=== PATIENT | female | born 1935 | race Caucasian/White ===

== ENCOUNTER 2017-01-27 10:26 | Inpatient (IN) | payer MEDICARE ==
[2017-01-27] VITALS (9 sets, daily range): BP systolic 153–186; BP diastolic 63–92; PULSE 64–75; RESP 14–18; TEMP 98.3; O2SAT 95–97
[~2017-01-27] VITALS: Ht 160 cm; Wt 61.3 kg
[~2017-01-27 10:26] MED LIST: AMLO5TAB96 PO; ASPI81 PO; LEVO.1 PO; LIPI40TA PO; MAXZ PO; TOPR100T15 PO
[2017-01-27] MEDS ORDERED: FURO1TAB62 PO (10:44)
[2017-01-27] MEDS ORDERED: ASPI81CH CHEW (10:44)
[2017-01-27] MEDS ORDERED: TRIA37.5 PO (10:44)
[2017-01-27] MEDS ORDERED: SYNT112T PO (10:44)
[2017-01-27] MEDS ORDERED: METO100T9 PO (10:44)
[2017-01-27] MEDS ORDERED: ATOR40TA16 PO (10:44)
[2017-01-27] MEDS ORDERED: AMLO5CAP3 PO (10:44)
--- NOTE | 2017-01-27 10:54 | PD ---
HPI Chief Complaint: GI Complaint Time Seen by Provider: 10:41 Travel History International Travel<30 days: No Contact w/Intl Traveler<30days: No Traveled to known affect area: No History of Present Illness HPI 81-year-old female here for evaluation of abdominal pain, nausea, possible bowel extraction. The patient reports having similar symptoms about 3 years ago when she was diagnosed with a bowel obstruction. At that time she was also diagnosed with renal cancer and had partial right nephrectomy. She has also had a history of hysterectomy. She feels very nauseous but has not vomited. Yesterday evening she was having intense diffuse abdominal pain. Currently her abdominal pain is mild. She has not had a bowel movement in several days. No fevers. No chest pain. PFSH Past Medical History Autoimmune Disease: No Blood Disorders: No Cancer: No Cardiovascular Problems: Yes (HAD ANGIOGRAM 2 YEAR AGO AT [facility]) Chest Pain: Yes Endocrine: No Genitourinary: No Hypertension: Yes Musculoskeletal: No Neurologic: No Psychiatric: No Respiratory: No Myocardial Infarction: Yes ?: Not Menopausal: Yes Past Surgical History Gynecologic Surgery: Yes (HYSTERECTOMY) Hysterectomy: Yes (PARTIAL) Other Surgery: Yes (PARTIAL NEPHRECTOMY) Social History Alcohol Use: Yes (2 DRINKS PER DAY) Tobacco Use: No Substance Use: No Allergies-Medications (Allergen,Severity, Reaction): Coded Allergies: No Known Allergies (Verified , 01/27/17) Reported Meds & Prescriptions Reported Meds & Active Scripts Active Reported Lasix (Furosemide) 20 Mg Tab 20 Mg PO DAILY Aspirin 81 Mg Chew 81 Mg CHEW DAILY Atorvastatin (Atorvastatin Calcium) 40 Mg Tab 40 Mg PO HS Metoprolol Succinate ER 24 HR (Metoprolol Succinate) 100 Mg Tab 100 Mg PO DAILY Triamterene-Hydrochlorothiazide 37.5-25 Mg Tab 1 Tab PO DAILY Synthroid (Levothyroxine Sodium) 112 Mcg Tab 112 Mcg PO DAILY Amlodipine-Benazepril 5-20 Mg Cap 1 Cap PO DAILY Review of Systems Except as stated in HPI: all other systems reviewed are Neg Physical Exam Narrative GENERAL: Well-developed, well-nourished, pleasant, comfortable, no apparent distress. SKIN: Focused skin assessment warm/dry. HEAD: Atraumatic. Normocephalic. EYES: Pupils equal and round. No scleral icterus. No injection or drainage. ENT: Mucous membranes pink and moist. NECK: Trachea midline. No JVD. CARDIOVASCULAR: Regular rate and rhythm. No murmur appreciated. RESPIRATORY: No accessory muscle use. Clear to auscultation. Breath sounds equal bilaterally. GASTROINTESTINAL: Abdomen soft, nondistended. Normal bowel sounds. Mild diffuse tenderness without peritoneal signs. MUSCULOSKELETAL: No obvious deformities. No clubbing. No cyanosis. Mild bilateral lower extremity edema. NEUROLOGICAL: Awake and alert. No obvious cranial nerve deficits. Motor grossly within normal limits. Normal speech. PSYCHIATRIC: Appropriate mood and affect; insight and judgment normal. Data Data Last Documented VS Vital Signs Date Time Temp Pulse Resp B/P Pulse Ox O2 Delivery O2 Flow Rate FiO2 01/27/17 12:21 64 18 169/78 95 Room Air 01/27/17 10:31 98.3 Orders Complete Blood Count With Diff (01/27/17 10:48) Comprehensive Metabolic Panel (01/27/17 10:48) Lipase (01/27/17 10:48) Prothrombin Time / Inr (Pt) (01/27/17 10:48) Act Partial Throm Time (Ptt) (01/27/17 10:48) Urinalysis - C+S If Indicated (01/27/17 10:48) Abdomen, Flat & Upright (01/27/17 ) Ct Abd/Pel W Iv Contrast(Rout) (01/27/17 10:48) Iv Access Insert/Monitor (01/27/17 10:48) Ecg Monitoring (01/27/17 10:48) Oximetry (01/27/17 10:48) Sodium Chloride 0.9% Flush (Ns Flush) (01/27/17 11:00) Electrocardiogram (01/27/17 10:48) Ondansetron Inj (Zofran Inj) (01/27/17 11:00) Chest, Single Ap (01/27/17 ) B-Type Natriuretic Peptide (01/27/17 10:48) Ckmb (Isoenzyme) Profile (01/27/17 11:25) Troponin I (01/27/17 11:25) CKMB (01/27/17 11:25) CKMB% (01/27/17 11:25) Sodium Chlor 0.9% 1000 Ml Inj (Ns 1000 M (01/27/17 12:17) Iodixanol 320 Inj (Rad Ct) (Visipaque 32 (01/27/17 12:32) Potassium Chlor 20 Meq Premix (Kcl 20 Me (01/27/17 13:30) Labs Laboratory Tests Test 01/27/17 01/27/17 11:00 11:25 Urine Collection Type VOIDED Urine Color YELLOW Urine Turbidity CLEAR Urine pH 6.5 Urine Specific [place] 1.006 Urine Protein 100 mg/dL Urine Glucose (UA) NEG mg/dL Urine Ketones NEG mg/dL Urine Occult Blood TRACE Urine Nitrite NEG Urine Bilirubin NEG Urine Leukocyte Esterase NEG Urine WBC 0-2 /hpf Urine Squamous Epithelial 0-5 /hpf Cells Urine Transitional Epithelial 0-3 /hpf Cells Microscopic Urinalysis Comment CULT NOT INDICATED White Blood Count 7.1 TH/MM3 Red Blood Count 3.96 MIL/MM3 Hemoglobin 12.8 GM/DL Hematocrit 37.7 % Mean Corpuscular Volume 95.1 FL Mean Corpuscular Hemoglobin 32.3 PG Mean Corpuscular Hemoglobin 34.0 % Concent Red Cell Distribution Width 12.9 % Platelet Count 258 TH/MM3 Mean Platelet Volume 7.9 FL Neutrophils (%) (Auto) 82.3 % Lymphocytes (%) (Auto) 8.4 % Monocytes (%) (Auto) 8.4 % Eosinophils (%) (Auto) 0.4 % Basophils (%) (Auto) 0.5 % Neutrophils # (Auto) 5.9 TH/MM3 Lymphocytes # (Auto) 0.6 TH/MM3 Monocytes # (Auto) 0.6 TH/MM3 Eosinophils # (Auto) 0.0 TH/MM3 Basophils # (Auto) 0.0 TH/MM3 CBC Comment DIFF FINAL Differential Comment Prothrombin Time 11.1 SEC Prothromb Time International 1.0 RATIO Ratio Activated Partial 25.7 SEC Thromboplast Time Sodium Level 127 MEQ/L Potassium Level 2.9 MEQ/L Chloride Level 86 MEQ/L Carbon Dioxide Level 30.7 MEQ/L Anion Gap 10 MEQ/L Blood Urea Nitrogen 9 MG/DL Creatinine 0.93 MG/DL Estimat Glomerular Filtration 58 ML/MIN Rate Random Glucose 102 MG/DL Calcium Level 8.4 MG/DL Total Bilirubin 1.2 MG/DL Aspartate Amino Transf 65 U/L (AST/SGOT) Alanine Aminotransferase 63 U/L (ALT/SGPT) Alkaline Phosphatase 82 U/L Total Creatine Kinase 256 U/L Creatine Kinase MB 5.6 NG/ML Creatine Kinase MB % 2.2 % Troponin I LESS THAN 0.02 NG/ML B-Type Natriuretic Peptide 690 PG/ML Total Protein 7.1 GM/DL Albumin 4.0 GM/DL Lipase 108 U/L MDM Medical Decision Making Medical Screen Exam Complete: Yes Emergency Medical Condition: Yes Interpretation(s) EKG: Atrial fibrillation, rate 66, leftward axis, LBBB, no acute ischemic abnormality. Differential Diagnosis Bowel obstruction, volvulus, constipation, colitis, mesenteric ischemia Narrative Course Vital signs show heart rate 75, blood pressure 161/84, pulse ox 96% on room air , oral temp of 98.3F. CBC shows WBC 7.1, hemoglobin 12.8, hematocrit 37.7, platelets 258, neutrophils 82.3%. CMP is remarkable for sodium 127, potassium 2.9, chloride 86, otherwise essentially unremarkable. Troponin is 108. BNP is 690. Cardiac enzymes are negative. UA shows 100 protein, trace occult blood, not suggestive of UTI. Chest x-ray: CONCLUSION: Normal examination. Stable scarring in the lingula CT abdomen pelvis: CONCLUSION: Mixed densities to both kidneys left greater than right. Correlate for symptoms of the kidney such as pyelonephritis. Could be just old area of scarring. No adenopathy or mass. Patient was made aware of all findings. She states that her abdominal pain is now mild. She also reports improvement in nausea, still feels slightly nauseous. Her Lasix was recently increased for worsening bilateral lower extremity edema. This could be contributing to her hypokalemia and hyponatremia. She was started on normal saline at 70 cc per hour and was written for 40 mEq of IV potassium. Her EKG shows atrial fibrillation with a rate of 66 as well as a left bundle branch block. Patient reports that the left bundle branch block is old, however she denies any known history of atrial fibrillation. Her survey research manager is Dr. Brock. She has been complaining of generalized weakness and shortness of breath for the last couple of weeks. She denies chest pain. She will be admitted for further treatment and evaluation of abdominal pain, hyponatremia, hypokalemia, new onset A. fib. Case discussed with hospitalist Dr. Love who will admit the patient to her service. Diagnosis Primary Impression: Abdominal pain Qualified Code: R10.9 - Abdominal pain, unspecified location Additional Impressions: Hyponatremia Hypokalemia Admitting Information Admitting Physician Requests: Hi Parks MD 17, 2017 10:54
[2017-01-27] MEDS ORDERED: SODIUM CHLORIDE 0.9% FLUSH 10 ML FLUSH IV FLUSH PRN (11:00)
[2017-01-27] MEDS ORDERED: ONDANSETRON HCL 4 MG/2 ML VIAL IV PUSH ONE (11:00)
[2017-01-27 11:11] LABS: BLOOD, URINE TRACE (NEG); GLUCOSE,URINE NEG (NEG); KETONE, URINE NEG (NEG); NITRITE,URINE NEG (NEG); PH, URINE 6.5 (5.0-8.5)
--- NOTE | 2017-01-27 11:24 | RADRPT ---
EXAM DATE/TIME: 01/27/2017 11:02 [facility] COMPARISON: CHEST SINGLE AP, March 20, 2016, 13:54. INDICATIONS : Short of breath. MEDICAL HISTORY : rt kidney ca SURGICAL HISTORY : partial rt nephrectomy ENCOUNTER: Initial ACUITY: 2 days PAIN SCORE: 0/10 LOCATION: Bilateral chest FINDINGS: A single view of the chest demonstrates the lungs to be symmetrically aerated without evidence of mas s, infiltrate or effusion. The cardiomediastinal contours are unremarkable. Osseous structures are intact. Atherosclerotic disease CONCLUSION: Normal examination. Stable scarring in the lingula Nathan Mera MD on January 27, 2017 at 11:22 Board Certified Radiologist. This report was verified electronically.
[2017-01-27 11:25] LABS: METHOD OF COLLECTION VOIDED; URINE COLOR YELLOW (YELLW/STRAW)
[2017-01-27 11:26] LABS: SQUAMOUS EPITHELIAL CELL URINE 0-5 /hpf (0-5); TRANSITIONAL EPI CELLS, URINE 0-3 /hpf; WBC, URINE 0-2 /hpf (0-5)
[2017-01-27 11:27] LABS: COMMENT (UR) CULT NOT INDICATED; CULTURE IF INDICATED CULT NOT INDICATED
--- NOTE | 2017-01-27 11:38 | RADRPT ---
EXAM DATE/TIME: 01/27/2017 11:06 [facility] COMPARISON: No previous studies available for comparison. INDICATIONS : Nausea, lower abdominal pain since last night, no bowel movement x 1 week. MEDICAL HISTORY : hx. bowel obstruction, rt. kidney ca. SURGICAL HISTORY : partial rt nephrectomy ENCOUNTER: Initial ACUITY: 2 days PAIN SCORE: 6/10 LOCATION: Bilateral lower quadrant FINDINGS: Supine and upright views of the abdomen were performed. The abdominal bowel gas pattern is normal. No air fluid levels are seen. No abnormal masses, calcifications, or organomegaly is seen. The visu alized lower lungs are clear. No evidence of free intraperitoneal gas. The osseous structures are u nremarkable. CONCLUSION: Normal examination. Nathan Mera MD on January 27, 2017 at 11:36 Board Certified Radiologist. This report was verified electronically.
[2017-01-27 11:43] LABS: AUTOMATED NEUTROPHIL # 5.9 TH/MM3 (1.8-7.7); BASOPHIL % 0.5 % (0.0-2.0); EOSINOPHIL % 0.4 % (0.0-4.0); HEMATOCRIT 37.7 % (35.0-46.0); LYMPH % 8.4 % (9.0-44.0); LYMPHOCYTE # 0.6 TH/MM3 (1.0-4.8); MEAN CELL VOLUME 95.1 FL (80.0-100.0); MEAN CORPUSCULAR HEMOGLOBIN 32.3 PG (27.0-34.0); MONO % 8.4 % (0.0-8.0); NEUT % 82.3 % (16.0-70.0); PLATELET COUNT 258 TH/MM3 (150-450); RED BLOOD COUNT 3.96 MIL/MM3 (4.00-5.30); RED CELL DISTRIBUTION WIDTH 12.9 % (11.6-17.2); WHITE BLOOD COUNT 7.1 TH/MM3 (4.0-11.0)
[2017-01-27 11:46] LABS: HEMO FLAGS DIFF FINAL
[2017-01-27 11:59] LABS: APTT (PATIENT) 25.7 SEC (24.3-30.1); PROTHROMBIN TIME - PATIENT 11.1 SEC (9.8-11.6)
[2017-01-27 12:08] LABS: ALKALINE PHOSPHATASE 82 U/L (45-117); ALT (GPT) 63 U/L (10-53); ANION GAP 10 MEQ/L (5-15); AST (GOT) 65 U/L (15-37); BICARBONATE 30.7 MEQ/L (21.0-32.0); BLOOD UREA NITROGEN 9 MG/DL (7-18); CHLORIDE 86 MEQ/L (98-107); CREATINE KINASE 256 U/L (26-192); GLOMERULAR FILTRATION RATE 58 ML/MIN (>89); SODIUM (NA) 127 MEQ/L (136-145); TOTAL BILIRUBIN ADULT 1.2 MG/DL (0.2-1.0)
[2017-01-27 12:09] LABS: POTASSIUM 2.9 MEQ/L (3.5-5.1)
[2017-01-27] MEDS ORDERED: SODIUM CHLOR 0.9% 1000 ML INJ 1,000 ML IV SCH (12:17)
[2017-01-27] MEDS ORDERED: IODIXANOL 320 MG/ML 10 ML VIAL (for Rad CT) IV ONE (12:32)
[2017-01-27 12:51] LABS: CKMB 5.6 NG/ML (0.5-3.6)
--- NOTE | 2017-01-27 12:56 | RADRPT ---
EXAM DATE/TIME: 01/27/2017 12:19 [facility] COMPARISON: No previous studies available for comparison. INDICATIONS : Abdominal pain and constipation.. IV CONTRAST: 4.83 cc Visipaque (iodixanol) IV ORAL CONTRAST: No oral contrast ingested. RADIATION DOSE: 4.83 CTDIvol (mGy) MEDICAL HISTORY : Hypertension. Right renal cancer. SURGICAL HISTORY : Hysterectomy. Partial right nephrectomy. ENCOUNTER: Initial ACUITY: 3 days PAIN SCALE: 4/10 LOCATION: Abdomen/pelvis TECHNIQUE: Volumetric scanning of the abdomen and pelvis was performed. Using automated exposure control and ad justment of the mA and/or kV according to patient size, radiation dose was kept as low as reasonably achievable to obtain optimal diagnostic quality images. DICOM format image data is available electro nically for review and comparison. FINDINGS: CT scan of the abdomen and pelvis demonstrate there are some hypodensities within the left kidney cou ld either be small cysts or possibly areas of infarct. Pyelonephritis would be less likely. There i s some cortical scarring and calcifications in the right kidney. The liver shows no focal masses. Portal veins patent. The pancreas, spleen are unremarkable. Gallb ladder is unremarkable. There is moderate stool throughout the colon. Small bowel is non-dilated. Lung bases are clear. Bon e windows are unremarkable. CONCLUSION: Mixed densities to both kidneys left greater than right. Correlate for symptoms of the kidney such a s pyelonephritis. Could be just old area of scarring. No adenopathy or mass. Nathan Mera MD on January 27, 2017 at 12:41 Board Certified Radiologist. This report was verified electronically.
[2017-01-27] MEDS: POTASSIUM CHLOR 20 MEQ PREMIX 100 ML IV SCH ×2 (13:31→19:43)
[2017-01-27] MEDS: SODIUM CHLOR 0.9% 1000 ML INJ 1,000 ML IV SCH (14:21)
[2017-01-27] MEDS ORDERED: ACETAMINOPHEN 325 MG TAB PO PRN (14:30)
--- NOTE | 2017-01-27 15:05 | HHI.HP ---
cc: Radha Lange MD [facility] Service [facility] Primary Care Physician Radha Lange MD Admission Diagnosis abdominal pain, hyponatremia, hypokalemia Diagnoses: Chief Complaint: Abdominal pain Travel History International Travel<30 Days: No Contact w/Intl Traveler <30 Da: No Traveled to Known Affected Are: No History of Present Illness This patient's 81-year-old female was evaluated for abdominal pain in the emergency room. She has had nausea without vomiting and increased constipation for the last 5 days. Patient notes no fevers or chills. She has not had any bloody stools or bloody emesis. She does have a history of ileus in the past and thought the complaint was very similar to that. Recently she had been increasingly short of breath, orthopnea and had some edema. She was prescribed double dose of her diuretic (Lasix) and this seemed to improve her shortness of breath and dyspnea however she began to have increasing abdominal discomfort. Patient is now found to be hyponatremic, hypokalemic and with elevated LFTs. Patient also has elevated CPK indicating early rhabdomyolysis. CT abdomen pelvis was done which does not show any blockages but it does show residual renal tumor for which she is in follow-[facility] at the [facility]. There is no evidence of volvulus. Her pain has been improved with narcotics. Here she also had some arrhythmia issues on telemetry with a rate controlled A. fib which apparently is new for her. Review of Systems Constitutional: DENIES: Diaphoretic episodes, Fatigue, Fever, Weight gain, Weight loss, Chills, Dizziness, Change in appetite, Night Sweats Endocrine: DENIES: Abnorml menstrual pattern, Heat/cold intolerance, Polydipsia , Polyuria, Polyphagia Eyes: DENIES: Blurred vision, Diplopia, Eye inflammation, Eye pain, Vision loss , Photosensitivity, Double Vision Ears, nose, mouth, throat: DENIES: Tinnitus, Hearing loss, Vertigo, Nasal discharge, Oral lesions, Throat pain, Hoarseness, Ear Pain, Running Nose, Epistaxis, Sinus Pain, Toothache, Odynophagia Respiratory: DENIES: Apneas, Cough, Snoring, Wheezing, Hemoptysis, Sputum production, Shortness of breath Cardiovascular: COMPLAINS OF: Dyspnea on Exertion, Lower Extremity Edema, DENIES: Chest pain, Palpitations, Syncope, PND, Orthopnea, Claudication Gastrointestinal: COMPLAINS OF: Abdominal pain, Nausea, DENIES: Black stools, Bloody stools, Constipation, Diarrhea, Vomiting, Difficulty Swallowing, Anorexia Genitourinary: DENIES: Abnormal vaginal bleeding, Dysmenorrhea, Dyspareunia, Sexual dysfunction, Urinary frequency, Urinary incontinence, Urgency, Hematuria , Dysuria, Nocturia, Vaginal discharge Musculoskeletal: DENIES: Joint pain, Muscle aches, Stiffness, Joint Swelling, Back pain, Neck pain Integumentary: DENIES: Abnormal pigmentation, Pruritus, Rash, Nail changes, Breast masses, Breast skin changes, Nipple discharge Hematologic/lymphatic: DENIES: Bruising, Lymphadenopathy Immunologic/allergic: DENIES: Eczema, Urticaria Neurologic: DENIES: Abnormal gait, Headache, Localized weakness, Paresthesias, Seizures, Speech Problems, Tremor, Poor Balance Psychiatric: DENIES: Anxiety, Confusion, Mood changes, Depression, Hallucinations, Agitation, Suicidal Ideation, Homicidal Ideation, Delusions Past Family Social History Past Medical History Hypertension Hyperlipidemia Hypothyroidism Past Surgical History Hysterectomy Reported Medications Reviewed in the medical record, recently increased her Lasix and is also on hydrochlorothiazide Allergies: Coded Allergies: No Known Allergies (Verified , 01/27/17) Active Ordered Medications Reviewed in the medical record Family History Patient has a family history of hypertension Social History No tobacco or alcohol dependency, lives with her Physical Exam Vital Signs Vital Signs Date Time Temp Pulse Resp B/P Pulse Ox O2 Delivery O2 Flow Rate FiO2 01/27/17 12:21 64 18 169/78 95 Room Air 01/27/17 11:32 18 97 Room Air 01/27/17 10:31 98.3 75 14 161/84 96 Room Air Physical Exam GENERAL: This is a well-nourished, well-developed patient, in no apparent distress. SKIN: No rashes, ecchymoses or lesions. Cool and dry. HEAD: Atraumatic. Normocephalic. No temporal or scalp tenderness. EYES: Pupils equal round and reactive. Extraocular motions intact. No scleral icterus. No injection or drainage. ENT: Nose without bleeding, purulent drainage or septal hematoma. Throat without erythema, tonsillar hypertrophy or exudate. Uvula midline. Airway patent. NECK: Trachea midline. No JVD or lymphadenopathy. Supple, nontender, no meningeal signs. CARDIOVASCULAR: Regular rate and rhythm without murmurs, gallops, or rubs. RESPIRATORY: Clear to auscultation. Breath sounds equal bilaterally. No wheezes , rales, or rhonchi. GASTROINTESTINAL: Abdomen soft, diffusely tender, hypoactive bowel sounds, nondistended. No hepato-splenomegaly, or palpable masses. No guarding. MUSCULOSKELETAL: Extremities without clubbing, cyanosis, or edema. No joint tenderness, effusion, or edema noted. No calf tenderness. Negative Homans sign bilaterally. NEUROLOGICAL: Awake and alert. Cranial nerves II through XII intact. Motor and sensory grossly within normal limits. Five out of 5 muscle strength in all muscle groups. Normal speech. Laboratory Laboratory Tests Test 01/27/17 01/27/17 11:00 11:25 Urine Collection Type VOIDED Urine Color YELLOW Urine Turbidity CLEAR Urine pH 6.5 Urine Specific [place] 1.006 Urine Protein 100 Urine Glucose (UA) NEG Urine Ketones NEG Urine Occult Blood TRACE Urine Nitrite NEG Urine Bilirubin NEG Urine Leukocyte Esterase NEG Urine WBC 0-2 Urine Squamous Epithelial 0-5 Cells Urine Transitional Epithelial 0-3 Cells Microscopic Urinalysis Comment CULT NOT INDICATED White Blood Count 7.1 Red Blood Count 3.96 Hemoglobin 12.8 Hematocrit 37.7 Mean Corpuscular Volume 95.1 Mean Corpuscular Hemoglobin 32.3 Mean Corpuscular Hemoglobin 34.0 Concent Red Cell Distribution Width 12.9 Platelet Count 258 Mean Platelet Volume 7.9 Neutrophils (%) (Auto) 82.3 Lymphocytes (%) (Auto) 8.4 Monocytes (%) (Auto) 8.4 Eosinophils (%) (Auto) 0.4 Basophils (%) (Auto) 0.5 Neutrophils # (Auto) 5.9 Lymphocytes # (Auto) 0.6 Monocytes # (Auto) 0.6 Eosinophils # (Auto) 0.0 Basophils # (Auto) 0.0 CBC Comment DIFF FINAL Differential Comment Prothrombin Time 11.1 Prothromb Time International 1.0 Ratio Activated Partial 25.7 Thromboplast Time Sodium Level 127 Potassium Level 2.9 Chloride Level 86 Carbon Dioxide Level 30.7 Anion Gap 10 Blood Urea Nitrogen 9 Creatinine 0.93 Estimat Glomerular Filtration 58 Rate Random Glucose 102 Calcium Level 8.4 Total Bilirubin 1.2 Aspartate Amino Transf 65 (AST/SGOT) Alanine Aminotransferase 63 (ALT/SGPT) Alkaline Phosphatase 82 Total Creatine Kinase 256 Creatine Kinase MB 5.6 Creatine Kinase MB % 2.2 Troponin I LESS THAN 0.02 B-Type Natriuretic Peptide 690 Total Protein 7.1 Albumin 4.0 Lipase 108 Result Diagram: 01/27/17 1125 01/27/17 1125 Imaging Last Impressions Abdomen/Pelvis CT 01/27/17 1048 Signed Impressions: Service Date/Time: Friday, January 27, 2017 12:19 - CONCLUSION: Mixed densities to both kidneys left greater than right. Correlate for symptoms of the kidney such as pyelonephritis. Could be just old area of scarring. No adenopathy or mass. Nathan Mera MD Chest X-Ray 01/27/17 0000 Signed Impressions: Service Date/Time: Friday, January 27, 2017 11:02 - CONCLUSION: Normal examination. Stable scarring in the lingula Nathan Mera MD Abdomen X-Ray 01/27/17 0000 Signed Impressions: Service Date/Time: Friday, January 27, 2017 11:06 - CONCLUSION: Normal examination. Nathan Mera MD Assessment and Plan Problem List: (1) Abdominal pain ICD Code: R10.9 Status: Acute Plan: Patient worried about ileus versus obstruction. No evidence on imaging however patient's symptoms are concerning for probable early ileus. Continue with bowel rest, IV hydration (2) Hyponatremia ICD Code: E87.1 Status: Acute Plan: Likely volume related, we'll continue with IV hydration Follow trend (3) Hypokalemia ICD Code: E87.6 Status: Acute Plan: We will replace, follow trend and check magnesium cont telemetry (4) Rhabdomyolysis ICD Code: M62.82 Status: Acute Plan: Follow CPK, continue IV hydration, follow renal function (5) SOB (shortness of breath) ICD Code: R06.02 Status: Acute Plan: Patient has a remote tobacco history, there is some elevation of BNP and a new rhythm which is rate controlled A. fib (new per Cardio and patient) Echocardiogram pending (office last visit echo was 2004) Well corrected electrolytes and add bronchodilators (6) HTN (hypertension) ICD Code: I10 Status: Acute Plan: Will continue a amlodipine. Metoprolol, hold diuretics for now (7) LFT elevation ICD Code: R79.89 Status: Acute Plan: May be due to CHF exacerbation, follow up trend If no improvement will continue with workup hold statin (8) Kidney carcinoma ICD Code: C64.9 Status: Acute Plan: remote and followed by [place] Assessment and Plan plan of care to be determined by hospital course Code Status full code Discussed Condition With patient ermd Physician Certification 2 Midnight Certification Type: Admission for Inpatient Services Order for Inpatient Services The services are ordered in accordance with Medicare regulations or non- Medicare payer requirements, as applicable. In the case of services not specified as inpatient-only, they are appropriately provided as inpatient services in accordance with the 2-midnight benchmark. Estimated LOS (days): 3 3 days is the estimated time the patient will need to remain in the hospital, assuming treatment plan goals are met and no additional complications. Post-Hospital Plan: Home Problem Qualifiers (1) Abdominal pain: Qualified Code: R10.9 - Abdominal pain, unspecified location Diana Love MD Jan 27, 2017 15:05
[2017-01-27] MEDS ORDERED: RESP: ALBUTEROL 2.5 MG/IPRATROPIUM 0.5 MG NEB (PRN) NEB (15:15)
[2017-01-27] MEDS: amLODIPine BESYLATE 5 MG TAB PO SCH (15:43)
[2017-01-27] MEDS ORDERED: cloNIDine HCL 0.1 MG TAB PO PRN (18:30)
[2017-01-27 18:36] LABS: CHLORIDE 93 MEQ/L (98-107); POTASSIUM 3.2 MEQ/L (3.5-5.1); SODIUM (NA) 132 MEQ/L (136-145)
[2017-01-27 18:40] LABS: ANION GAP 8 MEQ/L (5-15); BICARBONATE 31.2 MEQ/L (21.0-32.0); BLOOD UREA NITROGEN 7 MG/DL (7-18)
[2017-01-27 18:43] LABS: ALT (GPT) 56 U/L (10-53); AST (GOT) 50 U/L (15-37); GLOMERULAR FILTRATION RATE 64 ML/MIN (>89)
[2017-01-27 18:46] LABS: ALKALINE PHOSPHATASE 76 U/L (45-117)
[2017-01-27 18:59] LABS: CREATINE KINASE 175 U/L (26-192)
[2017-01-27 19:11] LABS: CKMB 4.2 NG/ML (0.5-3.6)
[2017-01-28] MEDS: SODIUM CHLOR 0.9% 1000 ML INJ 1,000 ML IV SCH ×2 (00:21→10:54)
[2017-01-28 00:40] VITALS: BP 162/72; PULSE 70; RESP 18; TEMP 97.8; O2SAT 96
[2017-01-28 04:00] VITALS: BP 121/64; PULSE 61; RESP 18; TEMP 97.8; O2SAT 95
[2017-01-28] MEDS: LEVOTHYROXINE SODIUM 112 MCG TAB PO SCH (05:47)
[2017-01-28 08:33] VITALS: BP 109/67; PULSE 65; RESP 18; TEMP 97.6; O2SAT 95
[2017-01-28] MEDS: ASPIRIN 81 MG CHEW TAB CHEW SCH (08:42)
[2017-01-28] MEDS: amLODIPine BESYLATE 5 MG TAB PO SCH (08:42)
[2017-01-28] MEDS: METOPROLOL SUCCINATE 50 MG EXTENDED RELEASE TAB PO SCH (08:42)
[2017-01-28 10:19] LABS: ANION GAP 8 MEQ/L (5-15); AST (GOT) 38 U/L (15-37); BICARBONATE 30.1 MEQ/L (21.0-32.0); BLOOD UREA NITROGEN 5 MG/DL (7-18); CHLORIDE 93 MEQ/L (98-107); GLOMERULAR FILTRATION RATE 71 ML/MIN (>89); POTASSIUM 3.1 MEQ/L (3.5-5.1); SODIUM (NA) 131 MEQ/L (136-145)
[2017-01-28 10:23] LABS: ALKALINE PHOSPHATASE 80 U/L (45-117); ALT (GPT) 55 U/L (10-53); CREATINE KINASE 131 U/L (26-192); TOTAL BILIRUBIN ADULT 1.2 MG/DL (0.2-1.0)
[2017-01-28 12:02] VITALS: BP 137/68; PULSE 59; RESP 18; TEMP 97.6; O2SAT 97
--- NOTE | 2017-01-28 13:09 | ECHRPT ---
Indication: A Fib and flutter CONCLUSIONS The left ventricular systolic function is low normal with an estimated ejection fraction in the rang e of 50- 55%. Mild mitral valve regurgitation. No aortic valve regurgitation. No aortic valve stenosis. There is mild tricuspid valve regurgitation. There is estimated mild pulmonary hypertension present (range 40-50 mmHg). The pulmonary valve is not well visualized. BP: 186 / 81 HR: 75 Rhythm: MEASUREMENTS (Male / Female) Normal Values Technical Quality:Fair 2D ECHO LV Diastolic Diameter PLAX 4.0 cm 4.2 - 5.9 / 3.9 - 5.3 cm LV Systolic Diameter PLAX 3.2 cm IVS Diastolic Thickness 1.4 cm 0.6 - 1.0 / 0.6 - 0.9 cm LVPW Diastolic Thickness 1.0 cm 0.6 - 1.0 / 0.6 - 0.9 cm LV Relative Wall Thickness 0.6 RV Internal Dim ED PLAX 2.8 cm M-MODE Aortic Root Diameter MM 3.3 cm LA Systolic Diameter MM 4.3 cm LA Ao Ratio MM 1.3 AV Cusp Separation MM 1.4 cm DOPPLER TR Peak Velocity 320.0 cm/s TR Peak Gradient 41.0 mmHg FINDINGS LEFT VENTRICLE The left ventricular systolic function is low normal with an estimated ejection fraction in the rang e of 50- 55%. RIGHT VENTRICLE Normal right ventricular size and systolic function. LEFT ATRIUM The left atrial size is normal. RIGHT ATRIUM The right atrial size is normal. ATRIAL SEPTUM Normal atrial septal thickness without atrial level shunting by limited color doppler interrogation. AORTA The aortic root and proximal ascending aorta are normal in size on limited imaging. MITRAL VALVE Structurally normal mitral valve. Mild mitral valve regurgitation. AORTIC VALVE Trileaflet aortic valve. No aortic valve regurgitation. No aortic valve stenosis. TRICUSPID VALVE Structurally normal tricuspid valve. There is mild tricuspid valve regurgitation. There is estimated mild pulmonary hypertension present (range 40-50 mmHg). PULMONARY VALVE The pulmonary valve is not well visualized. VESSELS The inferior vena cava is normal in size. PERICARDIUM No pericardial effusion. Jocelyn Mathur MD, FACC (Electronically Signed) Final Date:28 January 2017 13:07
--- NOTE | 2017-01-28 13:10 | HHI.PR ---
Subjective Remarks The patient is in bed. Says she feels improving today. No more nausea. Deneis vomiting. No fever or chills. Had a normal BM yesterday. No abdominal pain. Says she is hungry and would like to eat regular diet as she feels improving. Denies chest pain or sob. Objective Vitals Vital Signs Date Time Temp Pulse Resp B/P Pulse Ox O2 Delivery O2 Flow Rate FiO2 01/28/17 12:02 97.6 59 18 137/68 97 01/28/17 08:33 97.6 65 18 109/67 95 01/28/17 04:00 97.8 61 18 121/64 95 01/28/17 00:40 97.8 70 18 162/72 96 01/27/17 22:53 Room Air 01/27/17 22:15 68 16 166/81 97 01/27/17 22:15 68 16 166/81 97 Room Air 01/27/17 21:55 66 16 177/71 96 Room Air 01/27/17 21:37 97 21 01/27/17 19:00 74 16 165/92 97 Room Air 01/27/17 19:00 16 01/27/17 17:06 70 16 153/63 97 Room Air 01/27/17 15:22 68 18 186/81 97 Room Air I/O 01/27/17 01/27/17 01/27/17 01/28/17 01/28/17 01/28/17 06:59 14:59 22:59 06:59 14:59 22:59 Intake Total 1500 ml Balance 1500 ml Intake Oral 1500 ml # Voids 1 1 # Bowel Movements 0 Result Diagram: 01/27/17 1125 01/28/17 0906 Imaging Last Impressions Abdomen/Pelvis CT 01/27/17 1048 Signed Impressions: Service Date/Time: Friday, January 27, 2017 12:19 - CONCLUSION: Mixed densities to both kidneys left greater than right. Correlate for symptoms of the kidney such as pyelonephritis. Could be just old area of scarring. No adenopathy or mass. Nathan Mera MD Chest X-Ray 01/27/17 0000 Signed Impressions: Service Date/Time: Friday, January 27, 2017 11:02 - CONCLUSION: Normal examination. Stable scarring in the lingula Nathan Mera MD Abdomen X-Ray 01/27/17 0000 Signed Impressions: Service Date/Time: Friday, January 27, 2017 11:06 - CONCLUSION: Normal examination. Nathan Mera MD Objective Remarks GENERAL: Very pleasant elderly female, in bed, appears in nad. CARDIOVASCULAR: Regular rate and rhythm. RESPIRATORY: No accessory muscle use. Clear to auscultation. Breath sounds equal bilaterally. GASTROINTESTINAL: Abdomen soft,mild diffuse tenderness, nondistended. MUSCULOSKELETAL: Extremities without clubbing, cyanosis, or edema. No obvious deformities. NEUROLOGICAL: Awake and alert. No obvious cranial nerve deficits. Motor grossly within normal limits. Normal speech. PSYCHIATRIC: Appropriate mood and affect; insight and judgment normal. A/P Problem List: (1) Abdominal pain ICD Code: R10.9 Status: Acute (2) Hyponatremia ICD Code: E87.1 Status: Acute (3) Hypokalemia ICD Code: E87.6 Status: Acute (4) Rhabdomyolysis ICD Code: M62.82 Status: Acute (5) SOB (shortness of breath) ICD Code: R06.02 Status: Acute (6) HTN (hypertension) ICD Code: I10 Status: Acute (7) LFT elevation ICD Code: R79.89 Status: Acute (8) Kidney carcinoma ICD Code: C64.9 Status: Acute Assessment and Plan (1) Abdominal pain. Improving. ICD Code: R10.9 Status: Acute Plan: Patient worried about ileus versus obstruction. No evidence on imaging however patient's symptoms are concerning for probable early ileus. Continue with bowel rest, IV hydration. Patient had a BM yesterday 01/27. Advance diet as tolerated (2) Hyponatremia ICD Code: E87.1 Status: Acute Plan: Likely volume related, we'll continue with IV hydration Follow trend (3) Hypokalemia ICD Code: E87.6 Status: Acute Plan: We will replace, follow trend and check magnesium cont telemetry (4) Rhabdomyolysis ICD Code: M62.82 Status: Acute Plan: Follow CPK, continue IV hydration, follow renal function (5) SOB (shortness of breath) ICD Code: R06.02 Status: Acute Plan: Patient has a remote tobacco history, there is some elevation of BNP and a new rhythm which is rate controlled A. fib (new per Cardio and patient) Echocardiogram pending (office last visit echo was 2004) Well corrected electrolytes and add bronchodilators (6) HTN (hypertension) ICD Code: I10 Status: Acute Plan: Will continue a amlodipine. Metoprolol, hold diuretics for now (7) LFT elevation ICD Code: R79.89 Status: Acute Plan: May be due to CHF exacerbation, follow up trend If no improvement will continue with workup hold statin (8) Kidney carcinoma ICD Code: C64.9 Status: Acute Plan: remote and followed by [facility] Assessment and Plan plan of care to be determined by hospital course Code Status full code Discussed Condition With patient, nurse Problem Qualifiers (1) Abdominal pain: Qualified Code: R10.9 - Abdominal pain, unspecified location Yue Claudio MD Jan 28, 2017 13:10
[2017-01-28] MEDS ORDERED: POTASSIUM CHLORIDE 10 MEQ CONTROLLED RELEASE TAB PO ONE (13:15)
[2017-01-28 16:12] VITALS: BP 138/65; PULSE 69; RESP 18; TEMP 97.8; O2SAT 97
--- NOTE | 2017-01-28 19:25 | EKG ---
Date Performed: 01/27/2017 Time Performed: 11:27:23 PTAGE: 81 years EKG: ATRIAL FIBRILLATION MARKED LEFT AXIS DEVIATION LEFT BUNDLE BRANCH BLOCK ABNORMAL ECG PREVIOUS TRACING : 03/20/2016 13.34 Compared to the previous tracing, previously Sinus rhythm DOCTOR: Renny Mccallum Interpretating Date/Time 01/28/2017 19:23:18
[2017-01-28 20:00] VITALS: BP 147/81; PULSE 77; RESP 19; TEMP 98; O2SAT 94
[2017-01-29] VITALS: BP 128/61; PULSE 60; RESP 15; TEMP 98.3; O2SAT 95
[2017-01-29] MEDS: SODIUM CHLOR 0.9% 1000 ML INJ 1,000 ML IV SCH
[2017-01-29 04:00] VITALS: BP 152/67; PULSE 62; RESP 18; TEMP 97.9; O2SAT 94
[2017-01-29] MEDS: LEVOTHYROXINE SODIUM 112 MCG TAB PO SCH (05:12)
[2017-01-29 07:12] LABS: AUTOMATED NEUTROPHIL # 2.9 TH/MM3 (1.8-7.7); BASOPHIL % 0.8 % (0.0-2.0); EOSINOPHIL # 0.1 TH/MM3 (0-0.4); EOSINOPHIL % 1.8 % (0.0-4.0); HEMATOCRIT 33.5 % (35.0-46.0); HEMO FLAGS DIFF FINAL; LYMPHOCYTE # 0.7 TH/MM3 (1.0-4.8); MEAN CELL VOLUME 98.7 FL (80.0-100.0); MEAN CORPUSCULAR HEMOGLOBIN 33.2 PG (27.0-34.0); MEAN CORPUSCULAR HGB CONC 33.7 % (32.0-36.0); MONO % 12.9 % (0.0-8.0); NEUT % 68.5 % (16.0-70.0); PLATELET COUNT 195 TH/MM3 (150-450); RED BLOOD COUNT 3.39 MIL/MM3 (4.00-5.30); RED CELL DISTRIBUTION WIDTH 13.6 % (11.6-17.2); WHITE BLOOD COUNT 4.2 TH/MM3 (4.0-11.0)
[2017-01-29 07:27] LABS: BICARBONATE 23.9 MEQ/L (21.0-32.0); MAGNESIUM 1.4 MG/DL (1.5-2.5); POTASSIUM 3.9 MEQ/L (3.5-5.1)
[2017-01-29 08:00] VITALS: BP 163/91; PULSE 62; RESP 18; TEMP 97.9; O2SAT 93
--- NOTE | 2017-01-29 08:17 | HHI.DS ---
Discharge Summary Admission Date Jan 27, 2017 at 13:52 Discharge Date: Jan 29, 2017 Admitting Diagnosis abdominal pain, hyponatremia, hypokalemia (1) Abdominal pain ICD Code: R10.9 Diagnosis: Principal (2) Hyponatremia ICD Code: E87.1 Diagnosis: Principal (3) Hypokalemia ICD Code: E87.6 Diagnosis: Principal (4) Rhabdomyolysis ICD Code: M62.82 Diagnosis: Principal (5) SOB (shortness of breath) ICD Code: R06.02 Diagnosis: Principal (6) HTN (hypertension) ICD Code: I10 Diagnosis: Secondary (7) LFT elevation ICD Code: R79.89 Diagnosis: Secondary (8) Kidney carcinoma ICD Code: C64.9 (9) Atrial fibrillation ICD Code: I48.91 Diagnosis: Principal Procedures None Brief History - From Admission This patient's 81-year-old female was evaluated for abdominal pain in the emergency room. She has had nausea without vomiting and increased constipation for the last 5 days. Patient notes no fevers or chills. She has not had any bloody stools or bloody emesis. She does have a history of ileus in the past and thought the complaint was very similar to that. Recently she had been increasingly short of breath, orthopnea and had some edema. She was prescribed double dose of her diuretic (Lasix) and this seemed to improve her shortness of breath and dyspnea however she began to have increasing abdominal discomfort. Patient is now found to be hyponatremic, hypokalemic and with elevated LFTs. Patient also has elevated CPK indicating early rhabdomyolysis. CT abdomen pelvis was done which does not show any blockages but it does show residual renal tumor for which she is in follow-up at the [facility]. There is no evidence of volvulus. Her pain has been improved with narcotics. Here she also had some arrhythmia issues on telemetry with a rate controlled A. fib which apparently is new for her. CBC/BMP: 01/29/17 0621 01/29/17 0621 Significant Findings Laboratory Tests Test 01/27/17 01/27/17 01/27/17 01/28/17 11:00 11:25 18:05 09:06 Urine Protein 100 mg/dL (NEG-TRACE) Urine Occult Blood TRACE (NEG) Red Blood Count 3.96 MIL/MM3 (4.00-5.30) Neutrophils (%) (Auto) 82.3 % (16.0-70.0) Lymphocytes (%) (Auto) 8.4 % (9.0-44.0) Monocytes (%) (Auto) 8.4 % (0.0-8.0) Lymphocytes # (Auto) 0.6 TH/MM3 (1.0-4.8) Sodium Level 127 MEQ/L 132 MEQ/L 131 MEQ/L (136-145) (136-145) (136-145) Potassium Level 2.9 MEQ/L 3.2 MEQ/L 3.1 MEQ/L (3.5-5.1) (3.5-5.1) (3.5-5.1) Chloride Level 86 MEQ/L 93 MEQ/L 93 MEQ/L (98-107) (98-107) (98-107) Estimat Glomerular Filtration 58 ML/MIN (>89) 64 ML/MIN (>89) 71 ML/MIN (>89) Rate Calcium Level 8.4 MG/DL 7.8 MG/DL (8.5-10.1) (8.5-10.1) Total Bilirubin 1.2 MG/DL 1.2 MG/DL (0.2-1.0) (0.2-1.0) Aspartate Amino Transf 65 U/L (15-37) 50 U/L (15-37) 38 U/L (15-37) (AST/SGOT) Alanine Aminotransferase 63 U/L (10-53) 56 U/L (10-53) 55 U/L (10-53) (ALT/SGPT) Total Creatine Kinase 256 U/L (26-192) Creatine Kinase MB 5.6 NG/ML 4.2 NG/ML (0.5-3.6) (0.5-3.6) Troponin I LESS THAN 0.02 NG/ML (0.02-0.05) B-Type Natriuretic Peptide 690 PG/ML (0-100) Random Glucose 111 MG/DL (74-106) Blood Urea Nitrogen 5 MG/DL (7-18) Test 01/29/17 06:21 Red Blood Count 3.39 MIL/MM3 (4.00-5.30) Hemoglobin 11.3 GM/DL (11.6-15.3) Hematocrit 33.5 % (35.0-46.0) Monocytes (%) (Auto) 12.9 % (0.0-8.0) Lymphocytes # (Auto) 0.7 TH/MM3 (1.0-4.8) Sodium Level 135 MEQ/L (136-145) Calcium Level 7.6 MG/DL (8.5-10.1) Magnesium Level 1.4 MG/DL (1.5-2.5) Imaging Last Impressions Abdomen/Pelvis CT 01/27/17 1048 Signed Impressions: Service Date/Time: Friday, January 27, 2017 12:19 - CONCLUSION: Mixed densities to both kidneys left greater than right. Correlate for symptoms of the kidney such as pyelonephritis. Could be just old area of scarring. No adenopathy or mass. Nathan Mera MD Chest X-Ray 01/27/17 0000 Signed Impressions: Service Date/Time: Friday, January 27, 2017 11:02 - CONCLUSION: Normal examination. Stable scarring in the lingula Nathan Mera MD Abdomen X-Ray 01/27/17 0000 Signed Impressions: Service Date/Time: Friday, January 27, 2017 11:06 - CONCLUSION: Normal examination. Nathan Mera MD PE at Discharge GENERAL: Very pleasant elderly female, in bed, appears in nad. CARDIOVASCULAR: Regular rate and rhythm. RESPIRATORY: No accessory muscle use. Clear to auscultation. Breath sounds equal bilaterally. GASTROINTESTINAL: Abdomen soft,mild diffuse tenderness, nondistended. MUSCULOSKELETAL: Extremities without clubbing, cyanosis, or edema. No obvious deformities. NEUROLOGICAL: Awake and alert. No obvious cranial nerve deficits. Motor grossly within normal limits. Normal speech. PSYCHIATRIC: Appropriate mood and affect; insight and judgment normal. Pt update on day of discharge The patient is in the chair eating breakfast. Says she felt shortness of breath in the morning. She had an EKG that shows A. fib however without ventricular response her heart rate is 69-70. She doesn't feel short of breath at this time however she is still with irregular rhythm. Says she follows with a Dr. Jimenez as outpatient and she was supposed to have an echo done yesterday and follow-up with him. Patient had an echo while in the hospital which shows normal ejection fraction. She is already taking aspirin. Patient denies chest pain, shortness of breath, lightheadedness, nausea, vomiting, diarrhea or constipation. Says she had a normal bowel movement yesterday. She is able to tolerate regular food without any problems. Hospital Course The patient is a very pleasant 81-year-old female who came to the emergency room for evaluation of intractable nausea or vomiting possible ileus. Her electrolytes were noted very low and potassium and mag was replaced. Also shows noted with low sodium, she received IV fluids normal saline her sodium is back to normal. Electrolytes were replenished and back to normal. Patient was also noted with new onset A. fib with irregular rhythm she is taking metoprolol. Her heart rate is noted 59-70. She had some shortness of breath however she is feeling much better now. Patient had her 2-D echo which shows normal ejection fraction. Patient also follow with her cardiology as outpatient Dr. Jimenez. Patient to continue aspirin as outpatient. Patient was discharged in stable condition to home to follow-up with Dr. Jimenez her cardiology as outpatient and with her PCP. She also follows up mail regarding her renal cancer. Patient will have a Holter monitor as outpatient. (1) Abdominal pain. Improving. ICD Code: R10.9 Status: Acute Plan: Patient worried about ileus versus obstruction. No evidence on imaging however patient's symptoms are concerning for probable early ileus. Continue with bowel rest, IV hydration. Patient had a BM yesterday 01/27. Advance diet as tolerated (2) Hyponatremia ICD Code: E87.1 Status: Acute Plan: Likely volume related, we'll continue with IV hydration Follow trend (3) Hypokalemia ICD Code: E87.6 Status: Acute Plan: We will replace, follow trend and check magnesium cont telemetry (4) Rhabdomyolysis ICD Code: M62.82 Status: Acute Plan: Follow CPK, continue IV hydration, follow renal function (5) SOB (shortness of breath) ICD Code: R06.02 Status: Acute Plan: Patient has a remote tobacco history, there is some elevation of BNP and a new rhythm which is rate controlled A. fib (new per Cardio and patient) Echocardiogram pending (office last visit echo was 2004) Well corrected electrolytes and add bronchodilators (6) HTN (hypertension) ICD Code: I10 Status: Acute Plan: Will continue a amlodipine. Metoprolol, hold diuretics for now (7) LFT elevation ICD Code: R79.89 Status: Acute Plan: May be due to CHF exacerbation, follow up trend If no improvement will continue with workup hold statin (8) Kidney carcinoma ICD Code: C64.9 Status: Acute Plan: remote and followed by [facility] New-onset atrial fibrillation. Continue metoprolol. Follow-up with Dr. Jimenez's outpatient. Patient had a normal echo. Patient to have Holter monitor as outpatient to follow-up with her cardiology. Continue taking aspirin. Assessment and Plan plan of care to be determined by hospital course Code Status full code Discussed Condition With patient, nurse Pt Condition on Discharge: Stable Discharge Disposition: Disch w/ Home Health Serv Discharge Time: > 30 minutes Discharge Instructions DIET: Follow Instructions for: Heart Healthy Diet Activities you can perform: Regular-No Restrictions Follow up Referrals: Cardiology - Next Day with Elgin Jimenez MD PCP Follow-up - 3-5 Days New Orders: HOLTER MONITOR - Today Continued Medications: Amlodipine-Benazepril (Amlodipine-Benazepril) 5-20 Mg Cap 1 CAP PO DAILY Blood Pressure Management #30 Ref 0 CAP Aspirin (Aspirin) 81 Mg Chew 81 MG CHEW DAILY Ref 0 TAB Atorvastatin (Atorvastatin) 40 Mg Tab 40 MG PO HS Cholesterol Management #30 Ref 0 TAB Furosemide (Lasix) 20 Mg Tab 20 MG PO DAILY #30 Ref 0 TAB Levothyroxine (Synthroid) 112 Mcg Tab 112 MCG PO DAILY Thyroid #30 Ref 0 TAB Metoprolol Succinate ER 24 HR (Metoprolol Succinate ER 24 HR) 100 Mg Tab 100 MG PO DAILY #30 Ref 0 TAB Triamterene-Hydrochlorothiazide (Triamterene-Hydrochlorothiazide) 37.5-25 Mg Tab 1 TAB PO DAILY #30 Ref 0 TAB Yue Claudio MD Jan 29, 2017 08:17
--- NOTE | 2017-01-29 08:18 | HHI.FF ---
Face to Face Verification Diagnosis: (1) Kidney carcinoma (2) HTN (hypertension) (3) SOB (shortness of breath) (4) Abdominal pain (5) Rhabdomyolysis (6) Hyponatremia (7) LFT elevation Physical Therapy Order: Evaluate and Treat Home Health Nursing Order: Medical education Signs/symptoms of disease process Medication education-adverse effect Nursing assessment with vital signs I have seen patient Marie Valadez on 01/29/17. My clinical findings support the need for the requested home health care services because: Ltd mobility - disease progression Patient has SOB I certify that my clinical findings support that this patient is homebound because: Post-op weakness Unsteady gait/balance Yue Claudio MD Jan 29, 2017 08:18
[2017-01-29] MEDS ORDERED: MAGNESIUM OXIDE 400 MG TAB PO ONE ×2 (08:30→09:15)
[2017-01-29] MEDS: ASPIRIN 81 MG CHEW TAB CHEW SCH (09:36)
[2017-01-29] MEDS: amLODIPine BESYLATE 5 MG TAB PO SCH (09:36)
[2017-01-29] MEDS: METOPROLOL SUCCINATE 50 MG EXTENDED RELEASE TAB PO SCH (09:36)
[2017-01-29 12:00] VITALS: BP 179/80; PULSE 69; RESP 20; TEMP 97.8; O2SAT 97
== END 2017-01-29 13:24 | disposition home health service (06) | DRG 389 ==
LOC: PHED 10:26 → PHEDA 13:52 → N04A 22:41
PROVIDERS: ADMIT Hospitalist; ATTEND Hospitalist
DX: K56.7 Ileus, unspecified (principal); M62.82 Rhabdomyolysis; C64.9 Malignant neoplasm of unspecified kidney, except renal pelvis; I48.91 Unspecified atrial fibrillation; E87.1 Hypo-osmolality and hyponatremia; E03.9 Hypothyroidism, unspecified; E87.6 Hypokalemia; I10 Essential (primary) hypertension; Z87.891 Personal history of nicotine dependence; I25.2 Old myocardial infarction; E78.5 Hyperlipidemia, unspecified
CPT/HCPCS: 71010; 74020; 74177; 80048; 80053; 81001; 82550; 82552; 83690; 83735; 83880; 84443; 84484; 85025; 85610; 85730; 93005; 93306; 96361; 96365; 96375; J2405; J3480; J7030; Q9967